=== PATIENT | female | born 1990 | race Caucasian/White ===

== ENCOUNTER 2018-04-19 19:10 | Emergency (ER) | payer MEDICAID ==
[2018-04-19 19:43] LABS: HEMATOCRIT 46.9 % (36.0-47.0); HEMOGLOBIN 16.7 g/dL (12.0-15.5); MEAN CORPUSCULAR HEMOGLOBIN 30.9 pg (27.0-33.4); MEAN CORPUSCULAR HGB CONC 35.5 g/dL (32.0-36.0); MEAN CORPUSCULAR VOLUME 87 fl (80-97); PLATELET COUNT 239 10^3/uL (150-450); RED BLOOD COUNT 5.39 10^6/uL (3.72-5.28); RED CELL DISTRIBUTION WIDTH 13.2 % (11.5-14.0); WHITE BLOOD COUNT 8.3 10^3/uL (4.0-10.5)
[2018-04-19 19:58] LABS: ANION GAP 10 (5-19); BLOOD UREA NITROGEN 21 mg/dL (7-20); CALCIUM 8.9 mg/dL (8.4-10.2); CARBON DIOXIDE 28 mmol/L (22-30); CHLORIDE 103 mmol/L (98-107); GLUCOSE 156 mg/dL (75-110); POTASSIUM 4.9 mmol/L (3.6-5.0)
[2018-04-19] MEDS ORDERED: NORMAL SALINE 1000 ML 1,000 ML IV ONE (20:13)
--- NOTE | 2018-04-19 20:19 | ER Document Report ---
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 The patient states that she was at home, last and and suddenly became lightheaded, felt her ears ringing, and felt like she was about to pass out. She states that her symptoms worsened when she stood up and improved after she lied down. She received Benadryl by EMS due to flushing although denies feeling itchy, short of breath or having associated nausea or vomiting. No history of allergic reactions in the past. At the time of my assessment she denies any symptoms, states she feels quite well. She denies any focal weakness, numbness, headache or neck pain. No chest pain or shortness of breath either currently or previously. She denies a history of similar symptoms in the past. TRAVEL OUTSIDE OF THE [place] IN LAST 30 DAYS: No - Related Data Allergies/Adverse Reactions: lamotrigine [From Lamictal] Allergy (Verified 04/19/18 19:46) Past Medical History - General Information source: Patient, Relative - Social History Smoking Status: Never Smoker Chew tobacco use (# tins/day): No Frequency of alcohol use: None Drug Abuse: None Lives with: Family Family History: Reviewed & Not Pertinent Patient has suicidal ideation: No Patient has homicidal ideation: No Renal/ Medical History: Denies: Hx Peritoneal Dialysis Review of Systems - Review of Systems Notes: Constitutional: Negative for fever. HENT: Negative for sore throat. Eyes: Negative for visual changes. Cardiovascular: Negative for chest pain. Positive for near syncope Respiratory: Negative for shortness of breath. Gastrointestinal: Negative for abdominal pain, vomiting or diarrhea. Genitourinary: Negative for dysuria. Musculoskeletal: Negative for back pain. Skin: Negative for rash. Neurological: Negative for headaches, weakness or numbness. 10 point ROS negative except as marked above and in HPI. Physical Exam - Vital signs Vitals: Resp Pulse Ox 18 98 04/19/18 19:32 04/19/18 19:32 Interpretation: Normal Notes: PHYSICAL EXAMINATION: GENERAL: Well-appearing, well-nourished and in no acute distress. HEAD: Atraumatic, normocephalic. EYES: Pupils equal round and reactive to light, extraocular movements intact, sclera anicteric, conjunctiva are normal. ENT: nares patent, oropharynx clear without exudates. Moderately dry mucous membranes. NECK: Normal range of motion, supple without lymphadenopathy LUNGS: Breath sounds clear to auscultation bilaterally and equal. No wheezes rales or rhonchi. HEART: Regular rate and rhythm without murmurs ABDOMEN: Soft, nontender, normoactive bowel sounds. No guarding, no rebound. No masses appreciated. EXTREMITIES: Normal range of motion, no pitting or edema. No cyanosis. NEUROLOGICAL: No focal neurological deficits. Moves all extremities spontaneously and on command. PSYCH: Normal mood, normal affect. SKIN: Warm, Dry, normal turgor, no rashes or lesions noted. Course - Re-evaluation Re-evalutation: 04/19/18 20:17 Presentation of near syncope of unclear etiology. Patient also had associated flushing that appears to likely be secondary to an acute stress reaction as opposed to a true allergic reaction. Patient normotensive, alert, without focal neurologic deficits at time of arrival. Denies syncope was during exertion. No preceding symptoms of palpitations, chest pain, or shortness of breath. Patient asymptomatic at time of arrival. EKG is without evidence of HCOM , right heart strain, ST changes to suggest ischemia, prolong QTc, delta wave, epsilon wave, or Brugada syndrome. Patient denies any family history of sudden cardiac , personal history of of structural heart disease. Patient denies any symptoms to suggest an acute PE, CO, TAD, SAH, seizure, or acute GI bleed as the etiology of their syncope today. On exam, no murmurs to suggest critical aortic stenosis as possible etiology. Based on overall clinical history, exam findings, vitals, and patients appearance, I feel it is safe for patient to be discharged home at this time with close outpatient follow-up and strict return precautions. Patient is in agreement with this plan, has verbalized indications for return to ED, and questions have been answered. - Vital Signs Vital signs: Temp Pulse Resp BP Pulse Ox 17 98 04/19/18 20:00 04/19/18 20:00 - Laboratory Result Diagrams: 04/19/18 19:31 04/19/18 19:31 Laboratory results interpreted by me: 04/19/18 04/19/18 19:31 19:31 RBC 5.39 H Hgb 16.7 H BUN 21 H Glucose 156 H - EKG Interpretation by Me Additional EKG results interpreted by me: 04/19/18 20:19 Sinus tachycardia. Rate 103. No ST elevations or depressions. QTC is 457. Discharge - Discharge Clinical Impression: Near syncope, Flushing Condition: Good Disposition: HOME, SELF-CARE Additional Instructions: You were seen today after an episode of almost passing out. Your EKG here is normal. Your blood work is also normal with the exception of mildly elevated blood glucose which should be follow-up by your primary doctor. At this time, we do not feel that your episode of passing out was from any life-threatening cause. Please drink plenty of fluids over the next several days. Return to emergency department if you have any further episodes of syncope, headache, weakness, numbness, chest pain, or shortness of breath. Please follow up closely with your primary care physician. Referrals: LOCALMD,NO [NO LOCAL MD] - Follow up as needed
[2018-04-19 21:19] VITALS: BP 127/78
--- NOTE | 2018-04-19 22:14 | EKG REPORT ---
SEVERITY:- OTHERWISE NORMAL ECG - SINUS TACHYCARDIA BORDERLINE RIGHT AXIS DEVIATION : Confirmed by: Ronaldo Walker 19-Apr-2018 22:14:38
== END 2018-04-19 21:19 | disposition home or self-care (01) ==
LOC: ER 19:10
DX: R42 Dizziness and giddiness (principal); R23.2 Flushing; R53.1 Weakness
CPT/HCPCS: 93005; 99285; 96360; 36415; 84703; 85027; 80048; 93010; J7030

== ENCOUNTER 2018-10-05 21:42 | Emergency (ER) | payer MEDICAID ==
[2018-10-05] MEDS ORDERED: DIPH/PERTUSS(ACELL)/TETANUS VAC/PF 0.5 ML SYR (>=10YO) IM ONE (22:07)
--- NOTE | 2018-10-05 23:05 | RADIOLOGY REPORT (SQ) ---
EXAM DESCRIPTION: XR HAND 3 OR MORE VIEWS COMPLETED DATE/TME: 10/05/2018 22:07 CLINICAL HISTORY: 28 years, Female, LACERATION COMPARISON: None. NUMBER OF VIEWS: 3 TECHNIQUE: 3 view left hand LIMITATIONS: None. FINDINGS: Negative for acute fracture or dislocation. Negative for radiopaque foreign body. Joint spaces are preserved. Soft tissues are unremarkable IMPRESSION: Unremarkable exam copyright 2010 [employer]- All Rights Reserved
[2018-10-05] MEDS ORDERED: IBUPROFEN 600 MG TABLET PO ONE (23:38)
--- NOTE | 2018-10-05 23:44 | ER Document Report ---
ED Wound - General Chief Complaint: Laceration Stated Complaint: LEFT HAND LACERATION Time Seen by Provider: 10/05/18 22:07 Mode of Arrival: Ambulatory Information source: Patient TRAVEL OUTSIDE OF THE [place] IN LAST 30 DAYS: No - HPI Patient complains to provider of: Laceration, Puncture wound Notes: Patient here with complaints of puncture/laceration to the left hand. The patient states she was using a tool to did get out would when it slipped and jabbed her between her left thumb and index finger. She does complain of some tingling to the thumb, but no actual numbness. Full range of motion. She denies any other injuries. No bleeding. No redness or drainage. Unsure of her last tetanus, which will be updated today. No nausea, vomiting, diarrhea. No chest pain or shortness of breath. Pain is moderate, constant, worse with movement of the thumb, better with rest. No other complaints or injuries. - Related Data Allergies/Adverse Reactions: lamotrigine [From Lamictal] Allergy (Verified 10/05/18 22:37) Pruritis lurasidone Allergy (Verified 10/05/18 22:37) Hallucinations paliperidone Allergy (Verified 10/05/18 22:37) Hallucinations Past Medical History - Social History Smoking Status: Current Every Day Smoker Chew tobacco use (# tins/day): No Frequency of alcohol use: None Drug Abuse: None Family History: Reviewed & Not Pertinent Patient has suicidal ideation: No Patient has homicidal ideation: No Renal/ Medical History: Denies: Hx Peritoneal Dialysis Past Surgical History: Reports: Hx Tonsillectomy Review of Systems - Review of Systems -: Yes All other systems reviewed and negative Physical Exam - Vital signs Vitals: Temp Pulse Resp BP Pulse Ox 98.5 F 98 18 137/84 H 97 10/05/18 21:46 10/05/18 21:46 10/05/18 21:46 10/05/18 21:46 10/05/18 21:46 - Notes Notes: GENERAL: alert, cooperative, nontoxic, no distress. HEAD: normocephalic, atraumatic EYES: conjunctiva pink without discharge, no external redness or swelling. EARS: no external swelling, no external redness NOSE: atraumatic, no external swelling MOUTH/THROAT: mucous membranes moist and pink NECK: soft, supple, full range of motion, no meningismus. CHEST: no distress, lungs clear and equal throughout. No wheezing, rales, rhonchi. CARDIAC: regular rate and rhythm, no murmur, normal capillary refill, normal pulses. BACK: full range of motion, no CVA tenderness. EXTREMITIES: full range of motion of all extremities. No redness, no swelling. Half centimeter laceration/puncture wound between the left thumb and index finger. No active bleeding. No foreign body is visualized. Full range of motion of the thumb and index finger. Normal cap refill and sensation distally. No redness or drainage. NEURO: alert and oriented 3, no focal deficits, full range of motion of all extremities. PYSCH: appropriate mood, affect. Patient is cooperative. SKIN: pink, warm, dry, no rash. Course - Re-evaluation Re-evalutation: 10/05/18 23:41 Patient nontoxic-appearing with stable vitals. Patient with puncture/laceration to the webspace between the left thumb and index finger. She was using a tool to gouge out some wood when it slipped and hit her in this area. Her tetanus was updated. She is no foreign body identified on visual exam and no foreign body seen on plain films. Neurovascular she is intact. No signs of tendon laceration. Laceration was cleaned, irrigated and was closed using skin glue as it was already well approximated and was quite small. I did offer to place sutures, the patient preferred skin glue. Patient will be discharged home with instructions on wound care. Instructed to follow-up for any increasing pain, fever, redness, drainage, any further concerns. She does complain of some tingling to the thumb, therefore I will give her referral to orthopedics if this continues. The patient's emergency department workup and current diagnosis were explained to the patient and or family. Follow-up instructions were provided. Medications if prescribed were discussed. Instructions for when to return to the emergency department including specific worrisome symptoms were discussed with the patient and/or family. - Vital Signs Vital signs: Temp Pulse Resp BP Pulse Ox 98.5 F 98 18 137/84 H 97 10/05/18 21:46 10/05/18 21:46 10/05/18 21:46 10/05/18 21:46 10/05/18 21:46 - Diagnostic Test Radiology reviewed: Image reviewed, Reports reviewed - Negative left hand Procedures - Laceration/Wound Repair LEFT HAND Wound length (cm): 0.5 Wound's Depth, Shape: Superficial, Linear Laceration pre-procedure: Sterile PPE donned, Shur-Clens applied Wound explored: Clean, No foreign body removed Irrigated w/ Saline (mLs): 25 Wound Repaired With: Dermabond Layer Closure?: No Post-procedure NV exam normal: Yes Complications: No Discharge - Discharge Clinical Impression: Laceration Puncture wound of left hand Qualifiers: Encounter type: initial encounter Foreign body presence: without foreign body Qualified Code(s): S61.432A - Puncture wound without foreign body of left hand, initial encounter Condition: Stable Disposition: HOME, SELF-CARE Instructions: Skin Adhesive Closure ([facility]) Additional Instructions: Keep wound clean and dry. Take medications as prescribed. You may also take Tylenol as needed for pain. Follow-up with hand doctor if he continued to have tingling to the left thumb. Follow-up sooner for increasing pain, fever, redness, drainage, numbness, weakness or any further concerns. Prescriptions: Naproxen [Naprosyn] 500 mg PO BID #20 tablet Forms: Elevated Blood Pressure, Smoking Cessation Education Referrals: MARIA DEL CARMEN CURRY MD [ACTIVE STAFF] - Follow up as needed
[2018-10-06 00:01] VITALS: BP 118/65
== END 2018-10-06 00:01 | disposition home or self-care (01) ==
LOC: ER 21:42
DX: S61.412A Laceration without foreign body of left hand, initial encounter (principal); W26.8XXA Contact with other sharp object(s), not elsewhere classified, initial encounter; Y93.89 Activity, other specified; R20.2 Paresthesia of skin; F17.200 Nicotine dependence, unspecified, uncomplicated; Z88.8 Allergy status to other drugs, medicaments and biological substances
CPT/HCPCS: 99283; 90471; 73130; 90715; 12001; J3490

== ENCOUNTER 2019-06-24 01:24 | Emergency (ER) | payer MEDICAID ==
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
[2019-06-24 09:57] LABS: ABSOLUTE BASOPHILS # (AUTO) 0.1 10^3/uL (0.0-0.2); ABSOLUTE EOSINOPHILS # (AUTO) 0.1 10^3/uL (0.0-0.6); ABSOLUTE LYMPHOCYTES (AUTO) 1.4 10^3/uL (0.5-4.7); ABSOLUTE MONOCYTES (AUTO) 0.4 10^3/uL (0.1-1.4); ABSOLUTE NEUT (AUTO) 4.8 10^3/uL (1.7-8.2); BASOPHILS % (AUTO) 0.9 % (0-2); EOSINOPHILS % (AUTO) 1.2 % (0-6); HEMOGLOBIN 14.7 g/dL (12.0-15.5); LYMPHOCYTES % (AUTO) 20.7 % (13-45); MEAN CORPUSCULAR HGB CONC 34.2 g/dL (32.0-36.0); MEAN CORPUSCULAR VOLUME 88 fl (80-97); MONOCYTES % (AUTO) 5.7 % (3-13); PLATELET COUNT 200 10^3/uL (150-450); RED BLOOD COUNT 4.89 10^6/uL (3.72-5.28); RED CELL DISTRIBUTION WIDTH 13.5 % (11.5-14.0); SEGMENTED NEUTROPHILS % (AUTO) 71.5 % (42-78); TOTAL CELLS COUNTED % (AUTO) 100 %; WHITE BLOOD COUNT 6.7 10^3/uL (4.0-10.5)
[2019-06-24 10:05] LABS: AMORPHOUS SEDIMENT,URINE TRACE /HPF; APPEARANCE,URINE CLOUDY; BILIRUBIN,URINE NEGATIVE (NEGATIVE); COLOR,URINE YELLOW; GLUCOSE, URINE NEGATIVE (NEGATIVE); KETONES,URINE NEGATIVE (NEGATIVE); LEUKOCYTE ESTERASE,URINE LARGE (NEGATIVE); NITRITE,URINE NEGATIVE (NEGATIVE); PROTEIN,URINE NEGATIVE (NEGATIVE); URINE SPECIFIC GRAVITY 1.012; UROBILINOGEN,URINE NEGATIVE mg/dL (<2.0)
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
[2019-06-24 10:19] LABS: URINE AMPHETAMINES SCREEN NEGATIVE; URINE BARBITURATES SCREEN NEGATIVE; URINE BENZODIAZEPINES SCREEN NEGATIVE; URINE COCAINE SCREEN NEGATIVE; URINE MARIJUANA (THC) SCREEN NEGATIVE; URINE METHADONE SCREEN NEGATIVE; URINE PHENCYCLIDINE SCREEN NEGATIVE
[2019-06-24 10:20] LABS: ALKALINE PHOSPHATASE 53 U/L (38-126); ANION GAP 8 (5-19); ASPARTATE AMINO TRANSFERASE 21 U/L (14-36); BILIRUBIN,TOTAL 0.4 mg/dL (0.2-1.3); BLOOD UREA NITROGEN 16 mg/dL (7-20); CALCIUM 9.1 mg/dL (8.4-10.2); CARBON DIOXIDE 28 mmol/L (22-30); CHLORIDE 104 mmol/L (98-107); GLUCOSE 137 mg/dL (75-110); POTASSIUM 3.9 mmol/L (3.6-5.0); TOTAL PROTEIN 6.8 g/dL (6.3-8.2)
[2019-06-24 10:22] LABS: ACETAMINOPHEN < 10 ug/mL (10-30); ALCOHOL < 10 mg/dL (NONE DETECTED); SALICYLATE < 1.0 mg/dL (2.0-20.0)
[2019-06-24 11:10] LABS: FREE T3 2.92 pg/mL (2.77-5.27); FREE T4 (FREE THYROXINE) 1.19 ng/dL (0.78-2.19)
[2019-06-24 11:23] LABS: THYROID STIMULATING HORMONE 0.83 uIU/mL (0.47-4.68)
[2019-06-24 12:11] VITALS: BP 130/88
--- NOTE | 2019-06-24 13:28 | EKG REPORT ---
SEVERITY:- OTHERWISE NORMAL ECG - SINUS TACHYCARDIA : Confirmed by: Darrel Larry MD 24-Jun-2019 13:26:58
== END 2019-06-24 12:12 | disposition home or self-care (01) ==
LOC: ER 01:24
DX: R45.851 Suicidal ideations (principal); Z63.0 Problems in relationship with spouse or partner; G25.81 Restless legs syndrome; Z79.899 Other long term (current) drug therapy; F17.200 Nicotine dependence, unspecified, uncomplicated; Z88.8 Allergy status to other drugs, medicaments and biological substances
CPT/HCPCS: 36415; 80053; 80307; 81001; 84439; 84443; 84481; 84703; 85025; 93005; 93010